=== PATIENT | male | born 1985 ===

== ENCOUNTER 2016-11-13 00:45 | Emergency (ER) | payer SELFPAY ==
[2016-11-13 01:02] VITALS: RESP 20; TEMP 98.7
[2016-11-13] MEDS ORDERED: Sodium Chloride 0.9% 1,000 ML IV ONE (01:10)
--- NOTE | 2016-11-13 01:10 | C.PDOC ---
History Of Present Illness The patient is brought to the ED by EMS for evaluation after he was found wandering around an escalator of a path station. When approached, patient seemed confused and was unable to recall how he got to the station. Patient denies drug or alcohol use and has no physical complaints at this time. Time Seen by Provider: 11/13/16 01:09 Chief Complaint (Nursing): Altered Mental Status History Per: Patient, EMS History/Exam Limitations: None Onset/Duration Of Symptoms: Hrs Onset Of Symptoms: Cannot Confirm Onset Current Symptoms Are (Timing): Still Present Usual Baseline: Unknown Exacerbating Factor(s): Unknown. denies: Drug Use, Alcohol Use Use Of Anticoag/Antiplatelets: Unknown Speech Is: Normal Severity: Mild Pain Scale Rating Of: 3 Recent travel outside of the [place]: No Additional History Per: Patient, EMS Associated Symptoms: Confused Past Medical History Reviewed: Historical Data, Nursing Documentation, Vital Signs Vital Signs: Last Vital Signs Temp 98.7 F 11/13/16 00:54 Pulse 78 11/13/16 03:31 Resp 20 11/13/16 03:31 BP 116/81 11/13/16 03:31 Pulse Ox 98 11/13/16 03:31 - Medical History PMH: No Chronic Diseases Surgical History: No Surg Hx Family History: States: Unknown Family Hx - Social History Hx Alcohol Use: No Hx Substance Use: No Review Of Systems Constitutional: Negative for: Fever, Chills Cardiovascular: Negative for: Chest Pain, Palpitations Respiratory: Negative for: Cough, Shortness of Breath Gastrointestinal: Negative for: Nausea, Vomiting, Abdominal Pain Neurological: Positive for: Confusion. Negative for: Weakness, Numbness, Headache, Dizziness Physical Exam - Physical Exam Appears: Non-toxic, No Acute Distress Skin: Warm, Dry Head: Normacephalic Eye(s): bilateral: Normal Inspection Oral Mucosa: Moist Neck: Supple Chest: Symmetrical, No Deformity, No Tenderness Cardiovascular: Rhythm Regular, No Murmur Respiratory: No Rales, No Rhonchi, No Wheezing Back: No Vertebral Tenderness Extremity: Normal ROM, Capillary Refill (less than 2 seconds ) Neurological/Psych: Oriented x3 Gait: Steady ED Course And Treatment - Laboratory Results Result Diagrams: 11/13/16 01:30 11/13/16 01:30 ECG: Interpreted By Me, Viewed By Me ECG Rhythm: Sinus Rhythm, Nonspecific Changes O2 Sat by Pulse Oximetry: 98 Pulse Ox Interpretation: Normal - Radiology CXR: Interpreted by Me, Viewed By Me CXR Interpretation: No: Infiltrates, Fracture, Pnemothorax - CT Scan/US CT Head Other Rad Studies (CT/US): Read By Radiologist, Radiology Report Reviewed CT/US Interpretation: EXAM: CT Head Without Intravenous Contrast. CLINICAL HISTORY: 30 years old, male; Signs and symptoms; Altered mental status/memory loss; Confusion or. disorientation; Additional info: AMS. TECHNIQUE: Axial computed tomography images of the head/brain without intravenous contrast. This CT exam. was performed using one or more of the following dose reduction techniques: automated exposure. control, adjustment of the mA and/or kV according to patient size, and/or use of iterative. reconstruction technique. EXAM DATE/TIME: Exam ordered 11/13/2016 1:10 AM. COMPARISON: No relevant prior studies available. FINDINGS: Brain: No intracranial hemorrhage. There are questioned lacunar infarcts in the bilateral basal. ganglia, see series 5 image 20, although this could represent prominence of normal CSF spaces on. this axial CT. No significant white matter disease. No edema. Ventricles: Unremarkable. No ventriculomegaly. Bones/joints: Unremarkable. No acute fracture. Soft tissues: Unremarkable. Sinuses: There is patchy mucoperiosteal disease of the bilateral maxillary sinuses and ethmoid. sinuses. No air-fluid levels that would confirm acute sinusitis. Mastoid air cells: Mastoid air cells are clear. IMPRESSION: Limited study noting axial only as well as multiple areas of streak artifact. No intracranial. hemorrhage. No mass effect or midline shift. Question basal ganglia infarct versus prominent normal CSF spaces. Depending on clinical situation, other modality such as magnetic resonance imaging. may provide useful additional information noting poor sensitivity of noncontrast CT for acute ischemic. stroke as well as demyelinating and toxic/metabolic processes. Progress Note: CT Head, EKG, and labs ordered and reviewed. Patient received IV Fluids. pt without complaints. wants to go home Reevaluation Time: 05:31 Reassessment Condition: Improved Medical Decision Making Medical Decision Making: Upon provider reevaluation patient is feeling better, is medically stable, and requires no further treatment in the ED at this time. Patient will be discharged home . Counseling was provided and all questions were answered regarding diagnosis and need for follow up with the referred clinic. There is agreement to discharge plan. Return if symptoms persist or worsen. Disposition Counseled Patient/Family Regarding: Studies Performed, Diagnosis, Need For Followup - Disposition Referrals: [facility] [Outside] Disposition: HOME/ ROUTINE Disposition Time: 01:10 Condition: FAIR Instructions: Anxiety (ED) - Clinical Impression Clinical Impression: Patient condition resolved - Scribe Statement The provider has reviewed the documentation as recorded by the Scribe (Cherie Lemos) Provider Attestation: All medical record entries made by the Scribe were at my direction and personally dictated by me. I have reviewed the chart and agree that the record accurately reflects my personal performance of the history, physical exam, medical decision making, and the department course for this patient. I have also personally directed, reviewed, and agree with the discharge instructions and disposition.
[2016-11-13 01:33] LABS: BASO % 0.5 % (0.0-2.0); EOS # 0.1 K/uL (0.0-0.7); HEMOGLOBIN 12.7 g/dL (12.0-18.0); LYMPH # 1.1 K/uL (1.0-4.3); LYMPH % 13.4 % (20.0-40.0); MEAN CELL VOLUME 90.3 fL (80.0-94.0); MEAN CORPUSCULAR HEMOGLOBIN 29.8 pg (27.0-31.0); MEAN PLATELET VOLUME 7.3 fL (7.2-11.7); MONO # 0.7 K/uL (0.0-0.8); MONO % 8.7 % (0.0-10.0); NEUT # 6.4 K/uL (1.8-7.0); NEUT % 76.4 % (50.0-75.0); RBC 4.25 Mil/uL (4.40-5.90); RED CELL DISTRIBUTION WIDTH 13.9 % (11.5-14.5); WHITE BLOOD COUNT 8.4 K/uL (4.8-10.8)
[2016-11-13 01:38] LABS: ALBUMIN 3.9 g/dL (3.5-5.0)
[2016-11-13 01:41] LABS: ALB/GLOB RATIO 1.3 (1.0-2.1); ALT/SGPT 26 U/L (21-72); AST/SGOT 24 U/L (17-59); BLOOD UREA NITROGEN 16 mg/dL (9-20); CALCIUM 7.9 mg/dl (8.6-10.4); GFR AFRICAN-AMERICAN > 60; GFR NON-AFRICAN AMERICAN > 60; INR 1.1
[2016-11-13 02:13] LABS: URINE BILIRUBIN 1+ (NEGATIVE); URINE BLOOD NEGATIVE (NEGATIVE); URINE CALCIUM OXALATE CRYSTALS MANY /hpf (<OCC); URINE CLARITY Clear (Clear); URINE COLOR Yellow (YELLOW); URINE GLUCOSE (UA) NORMAL (Normal); URINE LEUKOCYTE ESTERASE NEG Leu/uL (Negative); URINE NITRATE NEGATIVE (NEGATIVE); URINE PROTEIN NEGATIVE (NEGATIVE)
[2016-11-13 02:15] LABS: BENZODIAZEPINES, UR NEGATIVE (NEGATIVE)
[2016-11-13 02:16] LABS: BARBITURATES, UR NEGATIVE (NEGATIVE)
[2016-11-13 02:19] LABS: PHENCYCLIDINE, UR NEGATIVE (NEGATIVE)
[2016-11-13 02:20] LABS: OPIATES, UR NEGATIVE (NEGATIVE)
[2016-11-13 03:32] VITALS: PULSE 78
[2016-11-13 07:14] VITALS: BP 119/80; O2SAT 100
--- NOTE | 2016-11-13 08:37 | CT ---
PROCEDURE: CT HEAD WITHOUT CONTRAST. HISTORY: AMS COMPARISON: None available. TECHNIQUE: Axial computed tomography images were obtained through the head/brain without intravenous contrast. Radiation dose: Total exam DLP = 849.53 mGy-cm. This CT exam was performed using one or more of the following dose reduction techniques: Automated exposure control, adjustment of the mA and/or kV according to patient size, and/or use of iterative reconstruction technique. FINDINGS: HEMORRHAGE: No intracranial hemorrhage. BRAIN: No mass effect or edema. Dilated perivascular space versus old right lentiform nucleus lacune. No evidence of acute infarct. VENTRICLES: Unremarkable. No hydrocephalus. CALVARIUM: Unremarkable. PARANASAL SINUSES: Unremarkable as visualized. No significant inflammatory changes. MASTOID AIR CELLS: Unremarkable as visualized. No inflammatory changes. OTHER FINDINGS: None. IMPRESSION: Dilated perivascular space versus old right lentiform nucleus lacune. No evidence of acute infarct. Otherwise unremarkable examination. Preliminary interpretation of this examination was reported by [employer] [facility] [employer] at 1:56 a.m. on 11/13/2016. There is concurrence of this report with the preliminary interpretation.
--- NOTE | 2016-11-13 09:03 | RAD ---
PROCEDURE: CHEST RADIOGRAPH, 1 VIEW HISTORY: Altered mental status COMPARISON: 11/13/2016 FINDINGS: LUNGS: Mild venous congestion. Right hilar prominence. PLEURA: No pneumothorax or pleural fluid seen. CARDIOVASCULAR: Normal. OSSEOUS STRUCTURES: Small rounded foci of increased sclerosis in the proximal right humeral head suggestive for a small bone island. VISUALIZED UPPER ABDOMEN: Normal. OTHER FINDINGS: None. IMPRESSION: Mild venous congestion. Right hilar prominence.
== END 2016-11-13 07:13 | disposition home or self-care (01) ==
LOC: C.ER 00:45
DX: Z00.8 Encounter for other general examination (principal)
CPT/HCPCS: 70450; 71010; 80053; 81001; 84484; 85025; 85610; 85730; 96360; 99285; G0480; J7040

== ENCOUNTER 2017-12-31 20:03 | Emergency (ER) | payer SELFPAY ==
--- NOTE | 2017-12-31 21:28 | C.PDOC ---
History Of Present Illness 32 y/o M BIBEMS after seizure. Patient is currently awake at the time of my examination, alert, and has no complaints and wishes to leave. He states he has had 3 prior seizures before this and states he will make an appointment with neurology in the next few days. He is not on any medication. He notes he struck his head as evidenced by a bump on his forehead but denies any headache, vomiting, vision change. Time Seen by Provider: 12/31/17 21:01 Chief Complaint (Nursing): Seizure Past Medical History Vital Signs: Last Vital Signs Temp 98.7 F 12/31/17 20:06 Pulse 88 12/31/17 20:06 Resp BP Pulse Ox 92 L 12/31/17 20:06 - Medical History PMH: Seizures (does not take medicaitons) Family History: States: Unknown Family Hx - Social History Hx Alcohol Use: No Hx Substance Use: No Review Of Systems Except As Marked, All Systems Reviewed And Found Negative. Constitutional: Negative for: Fever Cardiovascular: Negative for: Chest Pain Physical Exam - Physical Exam Appears: No Acute Distress Skin: Normal Color Head: Normacephalic Eye(s): bilateral: EOMI Oral Mucosa: Moist Neck: No Midline Cervical Tenderness Chest: No Deformity, No Tenderness Cardiovascular: Rhythm Regular Respiratory: No Accessory Muscle Use Gastrointestinal/Abdominal: Soft, No Tenderness Back: No Vertebral Tenderness Extremity: No Tenderness, No Swelling Pulses: Left Radial: Normal, Right Radial: Normal Neurological/Psych: Oriented x3, Normal Speech, Normal Cognition, Normal Motor Other Neurological Findings: No Facial Palsy ED Course And Treatment O2 Sat by Pulse Oximetry: 92 Disposition - Disposition Disposition: HOME/ ROUTINE Disposition Time: 21:27 Condition: STABLE Instructions: Epilepsy in Adults - Clinical Impression Clinical Impression: Seizure
[2017-12-31 21:44] VITALS: BP 127/93; PULSE 74; RESP 16; TEMP 98.8; O2SAT 100
== END 2017-12-31 21:44 | disposition home or self-care (01) ==
LOC: C.ER 20:03
DX: R56.9 Unspecified convulsions (principal)